=== PATIENT | male | born 1950 | race Caucasian/White ===

== ENCOUNTER → 2021-01-10 | Outpatient (CLI) | payer MEDICARE | LOC: LBRF 11:31 | DX: N40.0 Benign prostatic hyperplasia without lower urinary tract symptoms (principal); N42.9 Disorder of prostate, unspecified; R97.20 Elevated prostate specific antigen [PSA] | CPT/HCPCS: 87086 ==

== ENCOUNTER 2022-03-06 19:56 | Inpatient (IN) | payer MEDICARE ==
[~2022-03-06] VITALS: Ht 182.9 cm; Wt 129.0 kg
[2022-03-06 21:07] LABS: RED BLOOD COUNT 4.2 M/UL (4.20-5.50); WHITE BLOOD COUNT 17.6 K/UL (4.5-11.0)
[2022-03-07] MEDS ORDERED: METOPROLOL TART25 MG PO (10:42)
[2022-03-07] MEDS ORDERED: AMIODARONE HCL200 MG PO (10:42)
[2022-03-07] MEDS ORDERED: XARELTO20 MG PO (10:43)
[2022-03-07] MEDS ORDERED: JANUVIA100 MG PO (10:45)
[2022-03-07] MEDS ORDERED: FAMOTIDINE20 MG PO (10:45)
[2022-03-07] MEDS ORDERED: ATORVASTATIN CA80 MG PO (10:45)
[2022-03-07] MEDS ORDERED: VITAMIN D21250 MCG PO (10:46)
[2022-03-07] MEDS ORDERED: FEXOFENADINE H180 MG PO (10:46)
[2022-03-07] MEDS ORDERED: CLOPIDOGREL75 MG PO (10:46)
[2022-03-07] MEDS ORDERED: GLIPIZIDE10 MG PO (10:47)
[2022-03-07] MEDS ORDERED: VASCEPA1 GM PO (10:47)
[2022-03-07] MEDS ORDERED: ALFUZOSIN HCL E10 MG PO (10:48)
[2022-03-07] MEDS ORDERED: MONTELUKAST SOD10 MG PO (10:48)
[2022-03-07] MEDS ORDERED: FINASTERIDE5 MG PO (10:48)
--- NOTE | 2022-03-07 14:23 | NUR ---
1420- NOTIFIED DR MARIE OF PATIENTS TEMP 102.9. ORDERED TYLENOL 650MG EVERY 4 HOURS. STATED HE WOULD BE TO THE FLOOR TO SEE PT. WILL CONTINUE TO MONITOR.
--- NOTE | 2022-03-07 16:46 | NUR ---
1546- NOTIFIED DR. MARIE OF PTS CRITICAL LATIC ACID 19.3. NO NEW ORDERS AT THIS TIME.
[2022-03-08 00:31] LABS: CANDIDA ALBICANS Not Detected (Negative); CANDIDA KRUSEI Not Detected (Negative); CANDIDA TROPICALIS Not Detected (Negative); ESCHERICHIA COLI Not Detected (Negative); HAEMOPHILUS INFLUENZAE Not Detected (Negative); KLEBSIELLA OXYTOCA Not Detected (Negative); KLEBSIELLA PNEUMONIAE Not Detected (Negative); KPC-CARBAPENEM-RESISTANCE GENE Not Detected (Negative); PROTEUS Not Detected (Negative); PSEUDOMONAS AERUGINOSA Not Detected (Negative); SERRATIA MARCESANS Not Detected (Negative); STAPHYLOCOCCUS Not Detected (Negative); STAPHYLOCOCCUS AUREUS Not Detected (Negative); STREP AGALACTIAE (GROUP B) Not Detected (Negative); STREP PYOGENES (GROUP A) Not Detected (Negative); STREPTOCOCCUS Not Detected (Negative); vanA/B (VANCOMYCIN RESIST GENE Not Detected (Negative)
[2022-03-08 02:27] LABS: RED BLOOD COUNT 4.24 M/UL (4.20-5.50)
--- NOTE | 2022-03-08 03:39 | NUR ---
PATIENT COMPLAINING OG SMOTHERING FEELING, UPON ASSESSMENT HIS O2 SAT WAS 98 ON 3 L NC, RR 30 LUNG SOUNDS CLEAR WITH RIGHT LL RALES, PROVIDER INFORMED AND NEW ORDWERS NOTED. PATIENT WAS RESTING COMFORTABLY AFTER TREATMENT AND MEDICATION.
--- NOTE | 2022-03-08 03:41 | NUR ---
LAB CALLED WITH CRITICAL LACTIC AND BLOOD CULTURE ON PATIENT, PROVIDER WAS NOTIFIED AND NEW ORDERS WERE PLACED. PHARMACY WAS CONTACTED REGARDING ANTIBIOTIC DOSING ORDERS.
--- NOTE | 2022-03-08 20:07 | NUR ---
PT'S BP 90/53. REPORTED TO . RECIEVED ORDERS TO HOLD TONIGHTS DOSE OF AMIODARONE AND METOPROLOL. WILL CONTINUE TO MONITOR.
[2022-03-09 04:40] LABS: WHITE BLOOD COUNT 9.3 K/UL (4.5-11.0)
[2022-03-09 04:44] LABS: RED BLOOD COUNT 3.59 M/UL (4.20-5.50)
[2022-03-09 04:45] LABS: HEMOGLOBIN 10.9 gm/dl (14.0-17.5)
[2022-03-09 05:03] LABS: BUN/CREATININE RATIO 30 (0-10)
--- NOTE | 2022-03-09 05:10 | NUR ---
PT HR 130'S. NOTIFIED RECIEVED ORDER TO GIVE AMIODARONE AND METOPROLOL SCHEDULED FOR 0900 RIGHT NOW. WILL CONTINUE TO MONITOR.
[2022-03-10 05:30] LABS: HEMOGLOBIN 11.4 gm/dl (14.0-17.5); RED BLOOD COUNT 3.76 M/UL (4.20-5.50); WHITE BLOOD COUNT 10.3 K/UL (4.5-11.0)
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
--- NOTE | 2022-03-10 19:24 | NUR ---
CALLED PT'S EKG RESULTS TO DR CAZARES. RECIEVED ORDERS. WILL CONTINUE TO MONITOR.
[2022-03-11 07:09] LABS: HEMOGLOBIN 10.8 gm/dl (14.0-17.5); RED BLOOD COUNT 3.56 M/UL (4.20-5.50); WHITE BLOOD COUNT 11.8 K/UL (4.5-11.0)
[2022-03-11 07:49] LABS: BUN/CREATININE RATIO 32 (0-10)
[2022-03-12 05:13] LABS: HEMOGLOBIN 11.2 gm/dl (14.0-17.5); RED BLOOD COUNT 3.68 M/UL (4.20-5.50); WHITE BLOOD COUNT 12.8 K/UL (4.5-11.0)
[2022-03-12 06:08] LABS: BUN/CREATININE RATIO 23 (0-10)
[2022-03-13 03:04] LABS: HEMOGLOBIN 11.2 gm/dl (14.0-17.5); RED BLOOD COUNT 3.71 M/UL (4.20-5.50); WHITE BLOOD COUNT 15.7 K/UL (4.5-11.0)
[2022-03-13] MEDS ORDERED: AMIODARONE HCL200 MG PO (11:19)
[2022-03-13] MEDS ORDERED: HUMALOG 10100 UNITS/ SC (11:19)
[2022-03-13] MEDS ORDERED: BUMETANIDE1 MG PO (11:19)
[2022-03-13] MEDS ORDERED: LEVALBUTER1.25 MG/3 NEB (11:21)
[2022-03-13] MEDS ORDERED: DAPTOMYCIN350 MG IV (11:27)
[2022-03-13] MEDS ORDERED: TEFLARO400 MG IV (11:27)
[2022-03-13] MEDS ORDERED: COZAAR 25MG TAB25 MG PO (12:59)
== END 2022-03-13 20:00 | DRG 871 ==
LOC: ER1 19:56 → CDU 03-07 09:03 → M/S 03-07 09:03 → PROG CARE 03-10 20:21
PROVIDERS: Emergency Medicine; Internal Medicine; Physician Assistant; Student in an Organized Health Care Education/Training Program; ADMIT Internal Medicine Infectious Disease
PROC: 3E03329 Introduction of Other Anti-infective into Peripheral Vein, Percutaneous Approach (ICD-10-PCS; principal; 2022-03-07)
PROC: B24BZZZ Ultrasonography of Heart with Aorta (ICD-10-PCS; 2022-03-09)
PROC: B24BZZ4 Ultrasonography of Heart with Aorta, Transesophageal (ICD-10-PCS; 2022-03-13)
DX: A41.02 Sepsis due to Methicillin resistant Staphylococcus aureus (principal); I50.23 Acute on chronic systolic (congestive) heart failure; J96.01 Acute respiratory failure with hypoxia; N17.9 Acute kidney failure, unspecified; Z66 Do not resuscitate; Z20.822 Contact with and (suspected) exposure to COVID-19; I13.0 Hypertensive heart and chronic kidney disease with heart failure and stage 1 through stage 4 chronic kidney disease, or unspecified chronic kidney disease; N18.30 Chronic kidney disease, stage 3 unspecified; D69.6 Thrombocytopenia, unspecified; Z96.1 Presence of intraocular lens; I25.5 Ischemic cardiomyopathy; E11.22 Type 2 diabetes mellitus with diabetic chronic kidney disease; I07.1 Rheumatic tricuspid insufficiency; I48.0 Paroxysmal atrial fibrillation; K59.00 Constipation, unspecified; R65.20 Severe sepsis without septic shock; E66.01 Morbid (severe) obesity due to excess calories; E11.51 Type 2 diabetes mellitus with diabetic peripheral angiopathy without gangrene; N40.0 Benign prostatic hyperplasia without lower urinary tract symptoms; Z79.01 Long term (current) use of anticoagulants; Z79.4 Long term (current) use of insulin; Z95.810 Presence of automatic (implantable) cardiac defibrillator; Z95.1 Presence of aortocoronary bypass graft; Z95.2 Presence of prosthetic heart valve; Z87.891 Personal history of nicotine dependence; Z95.5 Presence of coronary angioplasty implant and graft; Z98.42 Cataract extraction status, left eye; Z98.41 Cataract extraction status, right eye; Z68.36 Body mass index [BMI] 36.0-36.9, adult
CPT/HCPCS: ECHO; 0240U; 36415; 36600; 71045; 71250; 80048; 80053; 80162; 80202; 81001; 82550; 82553; 82803; 82962; 83605; 83735; 83880; 84439; 84443; 84484; 85025; 85027; 86140; 87040; 87077; 87150; 87186; 93005; 93306; 93312; 93320; 94640; 94664; 94760; 96361; 96374; 96375; 96376; 97116; 97116-GP-CQ; 97161; 97165; 97535; 99285; G0378; J0692; J0878; J1160; J1940; J2250; J2405; J3010; J3370; J3475; J7030; J7070